=== PATIENT | female | born 2000 | race Caucasian/White ===

== ENCOUNTER 2023-04-23 18:38 | Emergency (ER) | payer MEDICAID ==
[~2023-04-23] VITALS: Ht 170.2 cm; Wt 63.6 kg
[2023-04-23 18:55] VITALS: BP 116/73
[2023-04-23] MEDS ORDERED: LIDOcaine 1% W/epiNEPHrine 1:100,000 20ml vial SQ ONE (19:30)
[2023-04-23] MEDS ORDERED: SULF1TAB49 PO (19:48)
[2023-04-23] MEDS ORDERED: CEPH500C2 PO (19:48)
[2023-04-23] MEDS ORDERED: sulfamethoxazole/trimethoprim DS (800/160mg) tablet PO ONE (19:50)
[2023-04-23] MEDS ORDERED: cephalexin 500mg capsule PO ONE (19:50)
== END 2023-04-23 19:55 | disposition home or self-care (01) ==
LOC: ER 18:40
DX: L02.413 Cutaneous abscess of right upper limb (principal)
CPT/HCPCS: 10061; 99284; A6449